=== PATIENT | female | born 1935 | race Caucasian/White ===

== ENCOUNTER 2019-11-25 09:26 | Inpatient (IN) | payer OTHER ==
[~2019-11-25] VITALS: Ht 144.8 cm; Wt 71.0 kg
[~2019-11-25 09:26] MED LIST: ALEN1TAB32 PO; ASPI-231 PO; CEPH-37 PO; CHOL20007 PO; LISI2.5T47 PO; METH1CHW PO; METO25TA93 PO; RANI300C7 PO
[2019-11-25] MEDS ORDERED: SODIUM CHLORIDE 0.9% 1,000 ML IV ONE (09:29)
[2019-11-25 10:15] LABS: Basophils # (auto) 0 10 ^3/uL (0-0.2); Eosinophils # (auto) 0 10 ^3/uL (0-0.8); Lymphocytes # (auto) 0.4 10 ^3/uL (0.4-5.4); Neutrophils # (auto) 6.7 10 ^3/uL (1.6-8.6); Neutrophils % (auto) 92.2 % (37.0-80.0); Nucleated Red Blood Cells % 0.1 %; White Blood Cell 7.3 10^3/uL (4.4-10.8)
[2019-11-25 10:17] LABS: Basophils % (auto) 0.4 % (0.0-2.0); Hematocrit 25.6 % (36.0-46.0); Hemoglobin 8.2 g/dL (12.2-16.2); Lymphocytes % (auto) 5.6 % (10.0-50.0); Mean Corpuscular Hgb Conc. 31.9 g/dL (32.0-36.0); Monocytes # (auto) 0.1 10 ^3/uL (0-1.3); Monocytes % (auto) 1.8 % (0.0-12.0); Platelet Count (auto) 149 10^3/uL (140-450); Red Blood Cells 2.64 10^6/uL (4.0-5.20); Red Cell Distribution Width 23.5 % (11.8-14.3)
[2019-11-25] MEDS ORDERED: LORazepam 2MG/ML-1ML VIAL IV ONE (10:30)
[2019-11-25 10:32] LABS: Albumin 1.7 g/dL (3.4-5.0); Anion Gap 15 (5-15); Blood Urea Nitrogen 9 mg/dL (7-18); Calcium 7.2 mg/dL (8.5-10.1); Carbon Dioxide 15 mmol/L (21-32); Chloride 101 mmol/L (98-107); Glucose 189 mg/dL (74-106); Sodium 131 mmol/L (136-145)
[2019-11-25 10:37] LABS: Alanine Aminotransferase 44 U/L (13-56); Alkaline Phosphatase 110 U/L (45-117); Aspartate Aminotransferase 100 U/L (15-37); BUN/Creatinine Ratio 9.2; GFR African American 70 mL/min; GFR Non-African American 58 mL/min; Total Protein 5.7 g/dL (6.4-8.2)
[2019-11-25 10:38] LABS: INR 1.83 (0.9-1.15); Partial Thromboplastin Time 42.7 sec (23.64-32.05)
[2019-11-25 10:43] LABS: Potassium 2.8 mmol/L (3.5-5.1)
[2019-11-25 11:06] LABS: Lactic Acid w/Reflex 4.5 mmol/L (0.4-2.0)
[2019-11-25] MEDS ORDERED: cefTRIAXone 1GM/50ML D5W 50 ML IV ONE (11:30)
[2019-11-25] MEDS ORDERED: ZINC SULFATE 220mg CAP or TAB PO ONE (11:30)
[2019-11-25] MEDS ORDERED: ASCORBIC ACID 500 MG TAB PO ONE (11:30)
[2019-11-25] MEDS ORDERED: AZITHROMYCIN 500MG/ 250ML 250 ML IV ONE (11:30)
[2019-11-25 11:51] LABS: Urine Bacteria MANY /hpf (None Seen); Urine Blood 1+ /uL (Negative); Urine Hyaline Cast MANY /lpf (0 - 2); Urine Mucus FEW (None Seen); Urine WBC 1248 /hpf (0 - 5); Urine WBC Clumps PRESENT /hpf (None Seen)
[2019-11-25] MEDS ORDERED: POTASSIUM EFFERVESENT TAB 25 MEQ PO ONE (12:30)
[2019-11-25] MEDS ORDERED: MORPHINE SULF INJ 2 MG/ML SYRINGE 1ML ONE (13:04)
[2019-11-25] MEDS ORDERED: ONDANSETRON HCL 4 MG/2 ML VIAL ONE (13:04)
[2019-11-25] MEDS ORDERED: ONDANSETRON HCL 4 MG/2 ML VIAL IV ONE (13:15)
[2019-11-25] MEDS ORDERED: MORPHINE SULF INJ 2 MG/ML SYRINGE 1ML IV ONE (13:15)
[2019-11-25] MEDS ORDERED: MORPHINE SULF INJ 2 MG/ML SYRINGE 1ML IV PRN (13:45)
[2019-11-25] MEDS ORDERED: NITROGLYCERIN 0.4 MG SL TAB SL PRN (13:45)
[2019-11-25] MEDS ORDERED: ALBUTEROL SULF 2.5 MG/0.5ML(0.5%) NEB SOLN NEB PRN (14:45)
[2019-11-25] MEDS ORDERED: DEXTROSE (50%) 50ML SYRG IV PRN (14:45)
[2019-11-25] MEDS ORDERED: traMADol HCL 50 MG TAB PO PRN (14:45)
[2019-11-25] MEDS ORDERED: ACETAMINOPHEN 500 MG TAB PO PRN (14:45)
[2019-11-25] MEDS ORDERED: LACTULOSE 20Gm/30ML SOLN PO PRN (14:45)
[2019-11-25] MEDS ORDERED: ONDANSETRON HCL 4 MG/2 ML VIAL IV PRN (14:45)
[2019-11-25] MEDS: SOD CHL 0.9%/ KCL 40MEQ 1,000 ML IV SCH (15:04)
[2019-11-25 15:37] VITALS: BP 163/77
[2019-11-25] MEDS: ACCU-CHEK COMFORT CURVE STRIP VI SCH ×2 (17:00→22:00)
--- NOTE | 2019-11-25 17:02 | NUR ---
AIR MATTRESS: Air mattress ordered at [facility],Reference # [id number]; ETA 11/25/19 @3330, Call [facility] if need to follow up at [phone] Addendum: 11/25/19 at 1926 by Carolann Frederick RN Amended: Links added.
[2019-11-25 17:28] VITALS: BP 142/74
[2019-11-25 17:30] VITALS: BP 150/76
[2019-11-25 18:00] VITALS: BP 157/72
--- NOTE | 2019-11-25 18:25 | NUR ---
ARRIVED AT 1700 FROM ER Admit to [facility],Diyadmitted to [facility] via gurney on hosiery knitter, and portable 02. Patient transfered to bed, connected to unit monitoring and oxygen, and weighed by bedscale. Patient oriented to Mehrdad kendrick RN, unit, room, bed, and unit policies regarding patient care and visiting hours. All questions and concerns addressed, patient verbalized understanding. NOTE: ALTERED, UNABLE TO ANSWER ANY QUESTIONS, ADMISSION COMPLETED AFTER INFORMATION OBTAINED FROM DTPaul ROSALES. HEAD START COORDINATOR AT BEDSIDE FOR MULTIPLE WOUNDS.
--- NOTE | 2019-11-25 18:30 | NUR ---
WOUND CARE NOTE: Wound care in to see patient per wound care request regarding multiple skin integrity issue that are noted present on admission. Patient is 84 years old female with admitting diagnosis of Bilateral Pneumonia, UTI, ALOC, Encephalopathy. Patient is resting in SDU bed in Rm. 263. Patient is awake but not oriented. Patient appears to be in n o pain using Baeza Muse Faces Pain Scale, however mild pain noted upon turning. Patient need assistance in turning and repositioning. Her Mik score is 9. Skin/wound assessment done with the help of SDU Arvind muñoz. Patient noted with multiple open full thickness pressure injury with no measurable depth to R medial sacrum (2x2cm), Rt ischial tuberosity (1x1cm), and Rt elbow (0.8x1cm). Wounds are red with granulation tissue, minimal yellow slough, minimal serosanguineous drainage no odor noted. 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 Patient also noted with R edematous arm with multi serum blisters. She has scattered ecchymosis to extremities and back. Multiple skin tears also noted to her Rt face/chin, R calf and L forearm. Skin tears has no skin flap,chelo wound is ecchymotic, minimal serosanguineous drainage noted, no odor noted. Cleansed multiple wounds with wound cleanser, patted dry with gauze, applied Thera honey gauze. Covered sacral, ischium, R chin wounds with Opti foam gentle dressing per MD order. Covered R elbow, R calf and L forearm wounds with Opti foam/abd pad and secured with stockinette. Patient tolerated well, repositioned for comfort facing her Rt side,redistributed pressure points with pillows. Photograph of mentioned wounds are taken for reference. RECOMMENDATION: Nursing to continue with Daily/PRN dressing change to sacral, R ischium wounds; EOD/PRN dressing change to Rt elbow, Rt calf, R chin and Lt forearm wounds per MD order, Dietary consult , frequent turning and repositioning schedule as condition permits, redistribute pressure points with pillows, air mattress (ordered), elevate heels on pillows, continue monitoring by wound care while patient is hospitalized. Addendum: 11/25/19 at 1924 by Carolann Frederick RN Amended: Links added.
[2019-11-25] MEDS: ALBUTEROL SULF 2.5 MG/0.5ML(0.5%) NEB SOLN NEB SCH (18:43)
[2019-11-25] MEDS: IPRATROPIUM BROM 0.5 MG/2.5ML INH SOL NEB SCH (18:43)
--- NOTE | 2019-11-25 19:44 | NUR ---
REPORT GIVEN TO NICOLE BOLIVAR
[2019-11-25 20:00] VITALS: BP 153/77
[2019-11-25] MEDS: FAMOTIDINE 20 MG TAB PO SCH (22:00)
[2019-11-26] VITALS (8 sets, daily range): BP systolic 110–151; BP diastolic 44–123
[2019-11-26] MEDS: SOD CHL 0.9%/ KCL 40MEQ 1,000 ML IV SCH ×2 (00:45→10:41)
[2019-11-26] MEDS: ALBUTEROL SULF 2.5 MG/0.5ML(0.5%) NEB SOLN NEB SCH ×4 (00:47→18:36)
[2019-11-26] MEDS: IPRATROPIUM BROM 0.5 MG/2.5ML INH SOL NEB SCH ×4 (00:47→18:36)
--- NOTE | 2019-11-26 01:00 | NUR ---
Patient bathe/linen change Patient given complete bath. Skin integrity assessed for any changes. Linens and gown changed. Patient repositioned for comfort.
[2019-11-26 03:48] LABS: Basophils # (auto) 0 10 ^3/uL (0-0.2); Basophils % (auto) 0.2 % (0.0-2.0); Eosinophils # (auto) 0 10 ^3/uL (0-0.8); Eosinophils % (auto) 0.1 % (0.0-7.0); Hematocrit 21.7 % (36.0-46.0); Lymphocytes # (auto) 0.5 10 ^3/uL (0.4-5.4); Lymphocytes % (auto) 5.7 % (10.0-50.0); Mean Corpuscular Hemoglobin 30.6 pg (28.0-32.0); Mean Corpuscular Hgb Conc. 31.5 g/dL (32.0-36.0); Mean Corpuscular Volume 97.2 fL (80.0-100.0); Monocytes # (auto) 0.2 10 ^3/uL (0-1.3); Monocytes % (auto) 2.4 % (0.0-12.0); Neutrophils # (auto) 8.1 10 ^3/uL (1.6-8.6); Neutrophils % (auto) 91.6 % (37.0-80.0); Platelet Count (auto) 105 10^3/uL (140-450); Red Blood Cells 2.24 10^6/uL (4.0-5.20); White Blood Cell 8.9 10^3/uL (4.4-10.8)
[2019-11-26 03:49] LABS: Red Cell Distribution Width 24.4 % (11.8-14.3)
[2019-11-26 03:50] LABS: Hemoglobin 6.8 g/dL (12.2-16.2)
[2019-11-26 04:05] LABS: Albumin 1.5 g/dL (3.4-5.0); Calcium 6.8 mg/dL (8.5-10.1); Potassium 4.1 mmol/L (3.5-5.1)
[2019-11-26 04:09] LABS: BUN/Creatinine Ratio 8.3; Bilirubin, Total 0.9 mg/dL (0.2-1.0); Total Protein 5.1 g/dL (6.4-8.2)
--- NOTE | 2019-11-26 04:18 | NUR ---
Critical hgb [address] Church thru phone, gave orders for type and screen and transfuse 1 unit PRBC. Will carry out an order after being readback and verified.
--- NOTE | 2019-11-26 06:00 | NUR ---
Joselineeck [id number]= [id number]= [id number], [id number], Lynnette Devine informed [id number]= [id number]
--- NOTE | 2019-11-26 06:39 | NUR ---
Tel.consent received from jaxson Hernandez's dtr, witnessed by Mukesh BOLIVAR and aroldo RN. Addendum: 11/27/19 at 1929 by Lucas Alejandre RN TEL CONSENT FOR BT OBTAINED FROM DTR
--- NOTE | 2019-11-26 06:50 | NUR ---
Paged Dr. Church for low urine output.
[2019-11-26] MEDS: ACCU-CHEK COMFORT CURVE STRIP VI SCH ×3 (07:23→22:33)
--- NOTE | 2019-11-26 08:00 | NUR ---
Opening Shift Note Assumed care of patient, laying in bed, eyes closed, unable to follow commands . No S/S of distress/SOB or pain. Patient on 3 LPM oxygen via nasal cannula, saturation 90%. Patient's temperature 97.2 orally, warming measures done. See interventions for complete assessment. Bed locked on low position, side rails up x2, bed alarms on at all times, room close to nurse station, will continue to monitor for changes Q1hr and PRN.
--- NOTE | 2019-11-26 08:31 | NUR ---
Received packed cells from blood bank. Unable to verify, wrist band ABC # not consistent with ABC # on Transfusion Card. Called blood bank, spoke to Carolann and states "Bring the blood back and will fix it." Blood sent back to lab.
[2019-11-26] MEDS ORDERED: cefTRIAXone 1GM/50ML D5W 50 ML IV SCH (09:00)
[2019-11-26] MEDS ORDERED: AZITHROMYCIN 500MG/ 250ML 250 ML IV SCH (10:00)
[2019-11-26] MEDS ORDERED: ENOXAPARIN SOD 30 MG/0.3 ML SYRINGE SC SCH (10:00)
--- NOTE | 2019-11-26 10:30 | NUR ---
Lovenox held at this time, hemoglobin level 6.8. Will inform
[2019-11-26] MEDS: FAMOTIDINE 20 MG TAB PO SCH (10:41)
--- NOTE | 2019-11-26 10:55 | NUR ---
Received call from patient's daughter Chastity who is able to provide password. Updated on patient's status and POC, verbalized understanding. All questions and concerns addressed.
--- NOTE | 2019-11-26 12:08 | NUR ---
Blood transfusion completed, no transfusion reaction noted.
--- NOTE | 2019-11-26 15:35 | NUR ---
Nutrition Assessment Notes Please refer to link for full assessment notes. Est Energy needs: [id number] kcals (20-23 kcal/kgBW) Est Protein needs: 58-77 gms/day (1.2-1.5 gm/kgBW) d/t respiratory distress Will continue to monitor and reassess prn. Addendum: 11/26/19 at [address] Amended: Links added.
--- NOTE | 2019-11-26 15:50 | NUR ---
Received call from Dr Young, updated on patient's status, informed of patient's low urine output, gram positive cocci in clusters per blood culture and low blood sugar levels. MD verbalized understanding with telephone orders, read back and verified. Will carry out.
[2019-11-26] MEDS ORDERED: VANCOMYCIN PER PHARMACY 0 MG IV SCH (16:15)
[2019-11-26] MEDS ORDERED: DEXTROSE (50%) 50ML SYRG IV PRN (16:15)
[2019-11-26] MEDS ORDERED: SODIUM CHLORIDE 0.9% 500 ML IV ONE (16:15)
--- NOTE | 2019-11-26 16:15 | NUR ---
Consult to Dr Bahena called in by Partner Management Consultant Debbie. Awaiting call back.
[2019-11-26] MEDS ORDERED: traMADol HCL 50 MG TAB PO PRN (16:30)
[2019-11-26] MEDS ORDERED: VANCOMYCIN 750mg/250ml 250 ML IV ONE (17:00)
[2019-11-26] MEDS ORDERED: D5W/LACTATED RINGERS 1,000 ML IV SCH (17:15)
--- NOTE | 2019-11-26 17:26 | NUR ---
Received call from Dr Ibarra, updated on patient's status. No new orders at this time and states "I'll take care of it." Addendum: 11/26/19 at 1729 by Trisha Mo RN wrong patient
[2019-11-26 17:44] LABS: Lactic Acid w/Reflex 5.3 mmol/L (0.4-2.0)
--- NOTE | 2019-11-26 18:00 | NUR ---
Patient transferred to specialty mattress, fall precautions in placed. Patient tolerated well.
--- NOTE | 2019-11-26 19:30 | NUR ---
RECEIVED REPORT FROM DAY RN POC REVIEWED
[2019-11-26] MEDS: InsuLIN REG 1unit/0.01ml Soln (100units/ml) SC SCH (20:00)
--- NOTE | 2019-11-26 21:15 | NUR ---
PT RESTLESS REPOSITIONED FOR COMFORT
[2019-11-26] MEDS ORDERED: PANTOPRAZOLE 40 MG/10 ML VIAL INJ IV SCH (22:00)
--- NOTE | 2019-11-26 22:32 | NUR ---
PAIN MED GIVEN FOR C/O DISCOMFORT,
[2019-11-27] MEDS: ACCU-CHEK COMFORT CURVE STRIP VI SCH
[2019-11-27] MEDS: InsuLIN REG 1unit/0.01ml Soln (100units/ml) SC SCH
[2019-11-27 00:04] VITALS: BP 143/72
[2019-11-27] MEDS: IPRATROPIUM BROM 0.5 MG/2.5ML INH SOL NEB SCH (00:15)
[2019-11-27] MEDS: ALBUTEROL SULF 2.5 MG/0.5ML(0.5%) NEB SOLN NEB SCH (00:15)
--- NOTE | 2019-11-27 01:30 | NUR ---
PT CONTINUE TO BE RESTLESS,
--- NOTE | 2019-11-27 02:01 | NUR ---
, PTS HR DECREASED FROM 130 TO 60 CODE BLUE CALLED
--- NOTE | 2019-11-27 02:15 | NUR ---
DR DAREN RHODES NOTIFIED OF PTS PASSING.
--- NOTE | 2019-11-27 02:26 | NUR ---
SPOKE TO PTS DAUGHTER CONNIE NOTIFIED HER OF MOTHERS PASSING
--- NOTE | 2019-11-27 03:00 | NUR ---
PTS DAUGHTER CALL TO VERIFY VIEWING OF PTXIOMY STATED THAT IT WAS OK, ADMITTING NOTIFIED OF FAMILY PERMISSION TO VIEW MOTHER
--- NOTE | 2019-11-27 03:32 | NUR ---
WAITING ON MACHINE FILLER TO RELEASE BODY, PTS BELONGS AT BEDSIDE CLOTHES, RING, PTS DENTURES,
--- NOTE | 2019-11-27 04:01 | NUR ---
SENIOR TECHNOLOGIST CALLED AND STATED THAT THE BODY CAN BE RELEASED TO THE MORTUARY, SHE STATED THAT SHE IS THE SENIOR TECHNOLOGIST [employer], AND SHE DOES NOT HAVE A NUMBER TO GIVE ME ONLY HER NAME
--- NOTE | 2019-11-27 04:09 | NUR ---
SPOKE WITH PTS DAUGHTER CONNIE RECINOS AT ( [phone]), SHE STATED THAT SHE WILL BE IN AFTER 0800 IN THE MORNING, SHE DOES NOT HAVE HER PAPERWORK, I NOTIFIED HER THAT WE WILL BE MOVING HER MOTHER TO ANOTHER LOCATION, DAUGHTER STATED THAT IT WILL BE OK AND THAT SHE WILL BE HERE IN THE MORNING WITH INFO OF MORTUARY
--- NOTE | 2019-11-27 04:20 | NUR ---
CALLED BACK PTS DAUGHTER CONNIE AND LET HER KNOW THAT SHE WOULD HAVE TO COME SEE PT YESICA, AND THAT SHE WONT BE ABLE TO SEE HER IN THE MORNING, UMER VERBALIZED UNDERSTANDING
--- NOTE | 2019-11-27 05:30 | NUR ---
PTS DAUGHTERS AT BEDSIDE, INFO GIVEN TO ME FOR MORTUARY
--- NOTE | 2019-11-27 05:38 | NUR ---
CALLED [facility], [facility], , FAMILY LEFT WITH ALL PROPERTY, ALL QUESTIONS AND CONCERNS ADDRESSED
--- NOTE | 2019-11-27 05:46 | NUR ---
MORTUARY STATED THAT THEY WILL PRODUCT DESIGN ENGINEER PT WITHIN ONE TO TWO HOURS
--- NOTE | 2019-11-27 06:25 | NUR ---
TOTAL BED BATH GIVEN, ALL IV'S AND DRESSINGS AND F/C REMOVED,
== END 2019-11-27 02:00 | disposition expired | DRG 871 ==
LOC: EDBD 09:26 → ER 09:26 → TELE 09:27 → DOU IN ICU 16:43
PROVIDERS: ADMIT Internal Medicine; ATTEND Internal Medicine
PROC: 02HV33Z Insertion of Infusion Device into Superior Vena Cava, Percutaneous Approach (ICD-10-PCS; 2019-11-25)
PROC: 30233N1 Transfusion of Nonautologous Red Blood Cells into Peripheral Vein, Percutaneous Approach (ICD-10-PCS; 2019-11-26)
PROC: 5A12012 Performance of Cardiac Output, Single, Manual (ICD-10-PCS; principal; 2019-11-27)
DX: A41.89 Other specified sepsis (principal); E43 Unspecified severe protein-calorie malnutrition; G93.41 Metabolic encephalopathy; J18.9 Pneumonia, unspecified organism; N39.0 Urinary tract infection, site not specified; D64.9 Anemia, unspecified; D69.6 Thrombocytopenia, unspecified; E16.2 Hypoglycemia, unspecified; E78.5 Hyperlipidemia, unspecified; E86.0 Dehydration; E87.6 Hypokalemia; H54.7 Unspecified visual loss; I10 Essential (primary) hypertension; I25.10 Atherosclerotic heart disease of native coronary artery without angina pectoris; R65.20 Severe sepsis without septic shock; Z66 Do not resuscitate; Z86.73 Personal history of transient ischemic attack (TIA), and cerebral infarction without residual deficits; Z90.710 Acquired absence of both cervix and uterus; Z88.5 Allergy status to narcotic agent; Z88.1 Allergy status to other antibiotic agents; Z03.818 Encounter for observation for suspected exposure to other biological agents ruled out
CPT/HCPCS: 36415; 36556; 70450; 71045; 71250; 80053; 81001; 82728; 82962; 83036; 83605; 83615; 83880; 84484; 85025; 85610; 85730; 86850; 86900; 86901; 86920; 87040; 87070; 87077; 87086; 87088; 87186; 87804; 87880; 92950; 93005; 94640; 96361; 96365; 96367; 96375; 99291; C9113; G0378; J0696; J2405